=== PATIENT | male | born 2000 | race Caucasian/White ===

== ENCOUNTER 2020-08-19 01:56 | Emergency (ER) | payer MEDICAID ==
[~2020-08-19] VITALS: Ht 172.7 cm; Wt 100.0 kg
--- NOTE | 2020-08-19 02:37 | NUR ---
CSM intact distal left ankle/foot.
[2020-08-19 02:54] VITALS: BP 104/66
== END 2020-08-19 02:57 | disposition home or self-care (01) ==
LOC: ER 01:58
DX: S93.402A Sprain of unspecified ligament of left ankle, initial encounter (principal); W50.2XXA Accidental twist by another person, initial encounter; Y93.K1 Activity, walking an animal; Y92.89 Other specified places as the place of occurrence of the external cause; Y99.8 Other external cause status
CPT/HCPCS: 73610; 99284